=== PATIENT | male | born 1995 | race Caucasian/White ===

== ENCOUNTER 2020-09-05 10:15 | Outpatient (REF) | payer OTHER, SELFPAY | END 2020-09-05 10:16 | disposition home or self-care (01) | LOC: HO.LAB 10:15 | PROVIDERS: PCP Internal Medicine; Visit Provider Internal Medicine | DX: Z20.822 Contact with and (suspected) exposure to COVID-19 (principal) | CPT/HCPCS: 36415; C9803; U0003; U0005 ==

== ENCOUNTER 2021-03-14 18:32 | Emergency (ER) | payer OTHER, SELFPAY ==
--- NOTE | ~2021-03-14 | XR_ITS ---
EXAMINATION: LEFT HAND CLINICAL INFORMATION: Status post surgery pain COMPARISON: None TECHNIQUE: 4 views FINDINGS: No acute finding. No evidence for fracture or dislocation. No soft tissue calcification. No underlying bony erosion or osteopenia. XR/XR hand wrist LT IMPRESSION: No bony finding.
[2021-03-14 18:35] VITALS: BP 139/68; PULSE 74; RESP 16; TEMP 36.9; O2SAT 96; BMI 21.9
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
--- NOTE | 2021-03-14 20:47 | PC.NURSE ---
PT THUMB SPICA PLACED BY PCT MICHELLE CHECKED BY MAGO BARNETT.
== END 2021-03-14 21:06 | disposition home or self-care (01) ==
PROVIDERS: Emergency Provider Internal Medicine; PCP Internal Medicine
DX: S63.642A Sprain of metacarpophalangeal joint of left thumb, initial encounter (principal); M79.642 Pain in left hand; Y29.XXXA Contact with blunt object, undetermined intent, initial encounter; Y93.9 Activity, unspecified; Y92.810 Car as the place of occurrence of the external cause; Z79.899 Other long term (current) drug therapy; Y99.9 Unspecified external cause status
CPT/HCPCS: 29130; 73110; 73130; 99283

== ENCOUNTER 2021-03-18 11:03 | Emergency (ER) | payer OTHER, SELFPAY ==
--- NOTE | ~2021-03-18 | XR_ITS ---
EXAMINATION: XR FINGER, LEFT CLINICAL INFORMATION: Thumb pain, swelling COMPARISON: None TECHNIQUE: 3 views of the left thumb including a PA view of the hand. FINDINGS: The alignment is normal. No fracture or dislocation or acute osseous abnormality is seen. Mild soft tissue swelling. XR/XR finger LT min 2V IMPRESSION: Mild soft tissue swelling. No acute fracture or dislocation is seen.
[2021-03-18 11:09] VITALS: BP 150/79; PULSE 82; RESP 17; TEMP 36.9; O2SAT 99; BMI 21.1
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
[2021-03-18 12:54] LABS: Basophils Percent Auto 0.2 % (0-2); Eosinophils Absolute Auto 0.1 X10*3/uL (0.0-0.4); Eosinophils Percent Auto 0.8 % (0-4); Hematocrit 46.1 % (42-52); Hemoglobin 15.1 g/dl (14.0-18.0); Imm Gran Pct Auto 0.6 % (0.0-0.4); Lymphocytes Absolute Auto 1.1 X10*3/uL (1.2-4.9); Lymphocytes Percent Auto 6.5 % (20-40); MANUAL DIFF FLAG SCAN; Mean Corpuscular HGB Conc 32.8 g/dl (31.0-36.0); Mean Corpuscular Hemoglobin 30.3 pg (27.0-33.0); Mean Corpuscular Volume 92.4 fL (80-98); Mean Platelet Volume 10.1 fL (9.4-12.4); Monocytes Absolute Auto 1.7 X10*3/uL (0.1-1.2); Monocytes Percent Auto 9.9 % (2-11); Neutrophils Absolute Auto 14.2 X10*3/uL (2.0-8.3); Platelet Count 212 X10*3/uL (160-400); Red Blood Count 4.99 X10*6/uL (4.60-5.80); Red Cell Distribution Width 12.9 % (11.0-16.0); SCAN SMEAR FLAG 1; White Blood Count 17.3 X10*3/uL (4.8-10.8)
[2021-03-18 13:12] LABS: COVID-19 Test Negative (Negative)
[2021-03-18 13:16] LABS: SLIDE REVIEW VERIFIED
[2021-03-18] MEDS: cefTRIAXone sodium 1 GM in 0.9 % Sodium Chloride 50 ML IV (13:17)
[2021-03-18] MEDS: HYDROcodone Bit/Acetam 5/325 TABLET 1 TAB PO (13:18)
[2021-03-18 13:19] LABS: Lactic Acid 0.9 mmol/L (0.5-2.0)
[2021-03-18 13:24] LABS: Anion Gap 13 (12-20); Blood Urea Nitrogen 7 mg/dL (9-16); C Reactive Protein 8.48 mg/dL (< or = 0.50); Calcium 10.1 mg/dL (8.4-10.2); Carbon Dioxide 27 mmol/L (22-29); Chloride 102 mmol/L (96-108); Creatinine Clr Calc Pharmacy 119.2; Estimated Glomerular Filt Rate > 60; Glucose Random 105 mg/dL (60-115); Magnesium 2.1 mg/dL (1.6-2.6); Potassium 4.1 mmol/L (3.3-5.1); Sodium 138 mmol/L (135-145)
[2021-03-18 13:34] LABS: Erythrocyte Sedimentation Rate 11 MM/HR (0-15)
[2021-03-18] MEDS: vancomycin HCL 750 MG in 0.9 % Sodium Chloride 250 ML 265 MG IV (13:53)
[2021-03-18 15:25] VITALS: BP 127/76; PULSE 68; RESP 16; TEMP 37.3; O2SAT 100
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
== END 2021-03-18 15:50 | disposition home or self-care (01) ==
PROVIDERS: Physician Assistant; Emergency Provider Emergency Medicine; PCP Internal Medicine
DX: R22.32 Localized swelling, mass and lump, left upper limb (principal); M79.642 Pain in left hand; Z20.822 Contact with and (suspected) exposure to COVID-19; Z79.899 Other long term (current) drug therapy
CPT/HCPCS: 36415; 73140; 80048; 83605; 83735; 85025; 85652; 86140; 87040; 87635; 96360; 96361; 99284; J0696; J3370

== ENCOUNTER 2021-03-19 09:45 | Outpatient (REF) | payer OTHER, SELFPAY | END 2021-03-19 09:46 | disposition home or self-care (01) | LOC: HO.LNP 09:45 | PROVIDERS: Visit Provider Physician Assistant | DX: L02.512 Cutaneous abscess of left hand (principal) | CPT/HCPCS: 10061; 87071; 87077; 87186; 87205; 99202 ==

== ENCOUNTER → 2021-03-22 11:04 | Outpatient (BNVA) | payer OTHER, SELFPAY | PROVIDERS: Visit Provider Physician Assistant | DX: L02.512 Cutaneous abscess of left hand (principal) | CPT/HCPCS: 99212 ==

== ENCOUNTER → 2021-03-28 10:15 | Outpatient (BNVA) | payer OTHER, SELFPAY | PROVIDERS: Visit Provider Physician Assistant | DX: L02.512 Cutaneous abscess of left hand (principal) | CPT/HCPCS: 99212 ==

== ENCOUNTER 2021-03-29 20:38 | Emergency (ER) | payer OTHER, SELFPAY ==
[2021-03-29 20:50] VITALS: BP 122/71; PULSE 89; RESP 16; TEMP 37.1; O2SAT 98; BMI 21.9
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
[2021-03-29] MEDS: Lidocaine HCl 2 % MPF 5 ML VIAL 10 ML SUBCUT (22:45)
[2021-03-29] MEDS: Diphth,Pertus(ACell),Tet Adult 0.5 ML SYRINGE IM (22:45)
[2021-03-29] MEDS: Amoxicillin/Potassium Clav 875 MG TABLET PO (22:45)
== END 2021-03-29 23:40 | disposition home or self-care (01) ==
PROVIDERS: Emergency Provider Student in an Organized Health Care Education/Training Program; PCP Internal Medicine
DX: S01.512A Laceration without foreign body of oral cavity, initial encounter (principal); S02.5XXA Fracture of tooth (traumatic), initial encounter for closed fracture; Y04.2XXA Assault by strike against or bumped into by another person, initial encounter; Y93.9 Activity, unspecified; Y92.9 Unspecified place or not applicable; Y99.9 Unspecified external cause status
CPT/HCPCS: 12011; 90471; 90715; 99283; 99284

== ENCOUNTER → 2021-04-02 12:08 | Outpatient (BNVA) | payer OTHER, SELFPAY | PROVIDERS: Visit Provider Physician Assistant ==

== ENCOUNTER → 2021-04-13 10:56 | Outpatient (BNVA) | payer OTHER, SELFPAY | PROVIDERS: Visit Provider Physician Assistant | DX: L02.512 Cutaneous abscess of left hand (principal) | CPT/HCPCS: 99212 ==

== ENCOUNTER 2021-04-18 17:24 | Emergency (ER) | payer OTHER, SELFPAY ==
[2021-04-18 18:01] VITALS: BP 120/62; PULSE 74; RESP 16; TEMP 36.9; O2SAT 100; BMI 19.5
[2021-04-18] MEDS: Lidocaine HCl 1 % MPF 5 ML VIAL SUBCUT (18:35)
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
== END 2021-04-18 19:12 | disposition home or self-care (01) ==
PROVIDERS: Emergency Provider Internal Medicine; PCP Internal Medicine
DX: S61.412A Laceration without foreign body of left hand, initial encounter (principal); M79.642 Pain in left hand; W26.8XXA Contact with other sharp object(s), not elsewhere classified, initial encounter; Y93.9 Activity, unspecified; Y92.009 Unspecified place in unspecified non-institutional (private) residence as the place of occurrence of the external cause; Y99.9 Unspecified external cause status; Z79.899 Other long term (current) drug therapy
CPT/HCPCS: 12001; 99283; 99284

== ENCOUNTER 2022-01-05 13:50 | Inpatient (IN) | payer OTHER, SELFPAY ==
--- NOTE | ~2022-01-05 | XR_ITS ---
EXAMINATION: XR HAND, RIGHT CLINICAL INFORMATION: Trauma. COMPARISON: None TECHNIQUE: PA, lateral, and oblique views of the right hand. FINDINGS: The bones and soft tissues are normal. No fracture. Alignment is anatomic. Joint spaces are maintained. No erosions or soft tissue calcifications. XR/XR hand RT min 3V IMPRESSION: Normal right hand.
[2022-01-05 14:02] VITALS: BP 105/78; BP 140/90; PULSE 100; PULSE 125; RESP 18; TEMP 36.8; O2SAT 100; BMI 19.7
--- NOTE | 2022-01-05 14:03 | ED.GENADULT ---
HPI - General Adult General Chief complaint: Psychiatric Symptoms Stated complaint: SI Time Seen by Provider: 01/05/22 14:03 Source: patient and EMS Mode of arrival: EMS Limitations: no limitations History of Present Illness HPI narrative: Patient is a 26 year old male presenting to the emergency department today with suicidal ideation and auditory hallucinations. Patient states that he wants to kill himself but he is unsure how. Patient denies any dizziness, lightheadedness, abdominal pain, nausea, vomiting, fever, chills, blurry vision, double vision, loss of vision, chest pain, difficulty breathing, shortness of breath, back pain, night sweats, pain with urination, increased urinary frequency, increased urinary urgency, blood in his urine or stool, syncope or a near syncopal episode, recent trauma or falls, bowel incontinence, bladder incontinence, bowel retention, bladder retention, or any other complaints at this time. Onset (ago): hour(s) Severity: mild Severity scale (1-10): 4 Relieving factors: none Exacerbating factors: none Associated symptoms: denies other symptoms Treatments prior to arrival: none Related Data Previous Rx's Medication Instructions Recorded albuterol sulfate 90 mcg/actuation 1 inh inhalation QID 30 days #8.5 12/07/20 aerosol inhaler (ProAir HFA) grams budesonide-formoterol HFA 80 2 puff inhalation BID 30 days 12/07/20 mcg-4.5 mcg/actuation aerosol #10.2 grams inhaler (Symbicort) prednisone 10 mg tablet 10 mg PO DAILY 6 days #12 tabs 12/07/20 hydrocodone 5 mg-acetaminophen 325 1 tab PO Q6H PRN pain #7 tabs 03/18/21 mg tablet ibuprofen 600 mg tablet 600 mg PO Q8H PRN pain #20 tabs 03/18/21 amoxicillin 875 mg-potassium 1 tab PO Q12H 10 days #20 tabs 03/29/21 clavulanate 125 mg tablet (Augmentin) sulfamethoxazole 800 1 tab PO BID 10 days #20 tabs 04/13/21 mg-trimethoprim 160 mg tablet (Bactrim DS) Allergies Allergy/AdvReac Type Severity Reaction Status Date / Time No Known Allergies Allergy Verified 04/18/21 18:04 Review of Systems Constitutional: Constitutional: Reports no additional constitutional complaints, Denies chills, Denies fever(s) and Denies night sweats Eyes: Eyes: Reports no additional eye complaints, Denies blurry vision, Denies change in vision, Denies diplopia, Denies eye discharge, Denies loss of vision and Denies eye pain ENT: Denies dizziness Cardiovascular: Cardiovascular: Reports no additional cardiovascular complaints, Denies chest pain, Denies lightheadedness, Denies Loss of Consciousness and Denies dyspnea Respiratory: Respiratory: Reports no additional respiratory complaints and Denies dyspnea Gastrointestinal: Gastrointestinal: Reports no additional gastrointestinal complaints, Denies abdominal pain, Denies melena, Denies hematochezia, Denies change in bowel habits and Denies change in stool character Genitourinary: Genitourinary: Reports no additional male genitourinary complaints, Denies hematuria, Denies oliguria, Denies difficulty urinating, Denies dysuria, Denies urinary frequency, Denies urinary hesitancy, Denies urinary incontinence and Denies urinary urgency Musculoskeletal: Musculoskeletal: Reports no additional musculoskeletal complaints, Denies numbness and Denies tingling Neurologic: Denies dizziness, Denies loss of vision, Denies numbness and Denies tingling Psychiatric: Psychiatric: Reports no additional psychiatric complaints and Reports suicidal ideation Endocrine: Endocrine: Reports no additional endocrine complaints Hematologic/Lymphatic: Hematologic/Lymphatic: Reports no additional hematologic/lymphatic complaints Allergic/Immunologic: Allergic/Immunologic: Reports no additional allergic/immunologic complaints [facility] Past Medical History Attestation statement: The following information was validated with the patient. 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 Physical Exam ED Vital Signs: Vital Signs - 24 hr 01/05/22 14:02 01/05/22 16:20 Temperature 98.2 F 98.8 F Pulse Rate 100 67 Respiratory Rate 18 20 Blood Pressure 105/78 98/63 Pulse Oximetry 100 98 Oxygen Delivery Method Room Air Room Air BMI result Body Mass Index 19.7 Const General: cooperative, no acute distress, alert and awake Nutritional Appearance: well nourished Orientation/consciousness: patient oriented x3 Limitations: no limitations HENMT Head: Yes normal to inspection and Yes atraumatic Ears: hearing grossly normal bilaterally and external ears normal General nose exam: Normal external nose present, no nasal discharge noted and no epistaxis Face and sinus: Yes normal facial exam, No abrasion and No laceration Mouth: Normal oral and palatal mucosa present, no drooling and no muffled voice Eyes General: appearance normal, both eyes and all related structures Periorbital: periorbital findings normal Eyelids: Yes eyelids normal Conjunctivae: conjunctivae normal Pupils: Equal, round and reactive pupils present EOM: EOMs intact bilaterally Neck Neck: Yes normal visual inspection, Yes full ROM and Yes no lymphadenopathy Chest Chest palpation & inspection: normal inspection of the chest Resp Effort & Inspection: normal respiratory effort and able to speak in complete sentences Auscultation: clear to auscultation bilaterally Cardio Rate: regular rate Rhythm: regular rhythm GI Inspection: Yes normal to inspection Neuro General: patient oriented x3 and moves all extremities Cranial nerves: Yes Equal, round and reactive pupils present Cognition (Neuro): normal cognition Motor exam (neuro): 5/5 motor strength present throughout Sensory Exam: Normal double simultaneous stimulation for sensation Coordination: [id number] test normal Extrem General: Yes normal to inspection, Yes full ROM and Yes capillary refill normal Psych Appearance: grossly normal Mental Status: mental status grossly normal Affect: normal affect Attitude: cooperative Thought process: Normal thought process present Thought content: Suicidality present Insight: Good insight present (Psych) Medical Decision Making [facility] Narrative Medical decision making narrative: Patient is a 26 year old male presenting to the emergency department today with suicidal ideation. Patient's physical exam was unremarkable. Patient's blood work showed an elevated white blood cell count however, this is chronic for the patient. I explained my physical exam findings as well as all test results to the patient. I answered all questions asked by the patient. Patient was evaluated by [facility] and they recommended inpatient treatment. Patient verbalized agreement with inpatient treatment. Differential Diagnosis Differential Diagnosis: suicidal ideation, depression Medical Records Medical records reviewed: Yes I reviewed the patient's medical records. Lab Data Lab results reviewed: Yes I reviewed the patient's lab results. Result diagrams: 01/05/22 15:49 01/05/22 15:49 Labs: Lab Results 01/05/22 01/05/22 01/05/22 Range/Units 14:49 15:49 15:49 WBC 12.9 H (4.8-10.8) X10*3/uL RBC 5.46 (4.60-5.80) X10*6/uL Hgb 16.1 (14.0-18.0) g/dl Hct 48.2 (42.0-52.0) % MCV 88.3 (80.0-98.0) fL MCH 29.5 (27.0-33.0) pg MCHC 33.4 (31.0-36.0) g/dl RDW 12.3 (11.0-16.0) % Plt Count 230 (160-400) X10*3/uL MPV 9.7 (9.4-12.4) fL Immature Gran % (Auto) 0.4 (0.0-0.4) % Neut % (Auto) 81.6 H (45-73) % Lymph % (Auto) 9.8 L (20-40) % [place] % (Auto) 7.0 (2-11) % Eos % (Auto) 0.9 (0-4) % Baso % (Auto) 0.3 (0-2) % Lymph # (Auto) 1.3 (1.2-4.9) X10*3/uL [place] # (Auto) 0.9 (0.1-1.2) X10*3/uL Eos # (Auto) 0.1 (0.0-0.4) X10*3/uL Baso # (Auto) 0.0 (0.0-0.2) X10*3/uL Abs Immat Gran (auto) 0.05 H (0.00-0.03) X10*3/uL Absolute Neuts (auto) 10.6 H (2.0-8.3) x10*3/uL Absolute Nucleated RBC 0.000 (0.0-0.012) X10*3/uL Nucleated RBC % (auto) 0.0 (0.0-0.2) /100WBC Sodium 138 (135-145) mmol/L Potassium 4.8 (3.3-5.1) mmol/L Chloride 104 (96-108) mmol/L Carbon Dioxide 25 (22-29) mmol/L Anion Gap 14 (12-20) BUN 16 (9-16) mg/dL Creatinine 1.00 (0.5-1.4) mg/dL Estim Creat Clear Calc 82.5 Estimated GFR > 60 Random Glucose 88 (60-115) mg/dL Calcium 10.0 (8.4-10.2) mg/dL Total Bilirubin 1.1 H (0.0-1.0) mg/dL AST 12 (5-37) U/L ALT 11 (0-40) U/L Alkaline Phosphatase 65 (39-117) U/L Total Protein 7.9 (6.5-8.0) g/dL Albumin 5.1 H (3.5-5.0) g/dL Ethyl Alcohol mg/dL COVID-19 ([facility]) Negative (Negative) COVID-19 Clin Com See Note 01/05/22 Range/Units 15:49 WBC (4.8-10.8) X10*3/uL RBC (4.60-5.80) X10*6/uL Hgb (14.0-18.0) g/dl Hct (42.0-52.0) % MCV (80.0-98.0) fL MCH (27.0-33.0) pg MCHC (31.0-36.0) g/dl RDW (11.0-16.0) % Plt Count (160-400) X10*3/uL MPV (9.4-12.4) fL Immature Gran % (Auto) (0.0-0.4) % Neut % (Auto) (45-73) % Lymph % (Auto) (20-40) % [place] % (Auto) (2-11) % Eos % (Auto) (0-4) % Baso % (Auto) (0-2) % Lymph # (Auto) (1.2-4.9) X10*3/uL [place] # (Auto) (0.1-1.2) X10*3/uL Eos # (Auto) (0.0-0.4) X10*3/uL Baso # (Auto) (0.0-0.2) X10*3/uL Abs Immat Gran (auto) (0.00-0.03) X10*3/uL Absolute Neuts (auto) (2.0-8.3) x10*3/uL Absolute Nucleated RBC (0.0-0.012) X10*3/uL Nucleated RBC % (auto) (0.0-0.2) /100WBC Sodium (135-145) mmol/L Potassium (3.3-5.1) mmol/L Chloride (96-108) mmol/L Carbon Dioxide (22-29) mmol/L Anion Gap (12-20) BUN (9-16) mg/dL Creatinine (0.5-1.4) mg/dL Estim Creat Clear Calc Estimated GFR Random Glucose (60-115) mg/dL Calcium (8.4-10.2) mg/dL Total Bilirubin (0.0-1.0) mg/dL AST (5-37) U/L ALT (0-40) U/L Alkaline Phosphatase (39-117) U/L Total Protein (6.5-8.0) g/dL Albumin (3.5-5.0) g/dL Ethyl Alcohol < 10 mg/dL COVID-19 ([facility]) (Negative) COVID-19 Clin Com Discharge Plan Discharge Clinical Impression: Feeling suicidal Patient Disposition: Still a Patient Prescriptions: No Action ibuprofen 600 mg tablet 600 mg PO Q8H PRN (Reason: pain) Qty: 20 0RF hydrocodone-acetaminophen 5-325 mg tablet 1 tab PO Q6H PRN (Reason: pain) Qty: 7 0RF amoxicillin-pot clavulanate [Augmentin] 875-125 mg tablet 1 tab PO Q12H 10 Days Qty: 20 0RF prednisone 10 mg tablet 10 mg PO DAILY 6 Days Qty: 12 0RF Rx Instructions: take 3 tabs x 2 days, take 2tabs x 2 days, take 1 tab x2 days albuterol sulfate [ProAir HFA] 90 mcg/actuation HFA aerosol inhaler 1 inh inhalation QID 30 Days Qty: 8.5 1RF budesonide-formoterol [Symbicort] 80-4.5 mcg/actuation HFA aerosol inhaler 2 puff inhalation BID 30 Days Qty: 10.2 0RF sulfamethoxazole-trimethoprim [Bactrim DS] 800-160 mg tablet 1 tab PO BID 10 Days Qty: 20 0RF Print Language: Yemeni
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
[2022-01-05 15:19] LABS: COVID-19 Test Negative (Negative); IDNOW Serial# 16C4AD1C
[2022-01-05 15:57] LABS: MANUAL DIFF FLAG NO
[2022-01-05 15:58] LABS: Basophils Percent Auto 0.3 % (0-2); Eosinophils Absolute Auto 0.1 X10*3/uL (0.0-0.4); Eosinophils Percent Auto 0.9 % (0-4); Hematocrit 48.2 % (42.0-52.0); Hemoglobin 16.1 g/dl (14.0-18.0); Imm Gran Abs Auto 0.05 X10*3/uL (0.00-0.03); Imm Gran Pct Auto 0.4 % (0.0-0.4); Lymphocytes Absolute Auto 1.3 X10*3/uL (1.2-4.9); Lymphocytes Percent Auto 9.8 % (20-40); Mean Corpuscular HGB Conc 33.4 g/dl (31.0-36.0); Mean Corpuscular Hemoglobin 29.5 pg (27.0-33.0); Mean Corpuscular Volume 88.3 fL (80.0-98.0); Mean Platelet Volume 9.7 fL (9.4-12.4); Monocytes Absolute Auto 0.9 X10*3/uL (0.1-1.2); Neutrophils Absolute Auto 10.6 x10*3/uL (2.0-8.3); Neutrophils Percent Auto 81.6 % (45-73); Platelet Count 230 X10*3/uL (160-400); Red Blood Count 5.46 X10*6/uL (4.60-5.80); Red Cell Distribution Width 12.3 % (11.0-16.0); White Blood Count 12.9 X10*3/uL (4.8-10.8)
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
[2022-01-05 16:14] LABS: Ethanol < 10 mg/dL
[2022-01-05 16:18] LABS: Alanine Aminotransferase 11 U/L (0-40); Albumin Level 5.1 g/dL (3.5-5.0); Alkaline Phosphatase 65 U/L (39-117); Anion Gap 14 (12-20); Aspartate Amino Transferase 12 U/L (5-37); Bilirubin Total 1.1 mg/dL (0.0-1.0); Blood Urea Nitrogen 16 mg/dL (9-16); Carbon Dioxide 25 mmol/L (22-29); Chloride 104 mmol/L (96-108); Creatinine Clr Calc Pharmacy 82.5; Estimated Glomerular Filt Rate > 60; Glucose Random 88 mg/dL (60-115); Potassium 4.8 mmol/L (3.3-5.1); Sodium 138 mmol/L (135-145); Total Protein 7.9 g/dL (6.5-8.0)
[2022-01-05 16:20] VITALS: BP 98/63; PULSE 67; RESP 20; TEMP 37.1; O2SAT 98
[2022-01-05] MEDS: Acetaminophen 325 MG TABLET 650 MG PO (16:52)
[2022-01-05 19:54] VITALS: BP 117/64; PULSE 82; RESP 16; TEMP 36.9; O2SAT 98
[2022-01-05 20:50] LABS: Amphetamine Screen Urine Not Detected (Not Detect); Barbiturates, Urine Not Detected (Not Detect); Benzodiazepines Screen Urine Not Detected (Not Detect); Cannabinoid Screen Urine POSITIVE (Not Detect); Cocaine Screen Urine Not Detected (Not Detect); Fentanyl, urine Not Detected (Not Detect); Opiate Screen Urine Not Detected (Not Detect); Phencyclidine Screen Urine Not Detected (Not Detect)
--- NOTE | 2022-01-05 21:06 | MHC.CARE ---
CARE team responded to POD concerns that pt was escalating and demanding to leave the facility. Pt was observed loudly demanding to be given his belongings and to discharge immediately. When asked what has triggered this change he loudly and with fixed stare (still shirtless and seated on bed) began to state you all are treating me like an animal, nobody is listening to me, nobody is helping me and I'm gonna leave ! Efforts of supportive discussion by CARE was dismissed by pt and he continued to escalate. He became louder, and was hitting the bed with a clenched fist. He said you all cant keep me here against my will...I got myself in here and I can get myself out of here . Pod staff made numerous efforts to support pt without success. CARE asked ED provider for medication help or consider change in disposition. SACK MAKER offered to provide medication and continue the section 12a for further observation with follow up in am. Security called for standby when explaining plan to pt and he continue to demand to leave and continued to state how I don't have a doctor no doctor has seen me here ! It was after time and supportive contact from POD pt calmed some and was agreeable to stay overnight. Pt would not safety plan or even discuss his reason for visit with CARE, and dismissed CARE. Pt overheard loudly telling staff that nobody has been listening or helping me despite the crisis evaluation that occurred within hours of this outburst and agreed upon plan as pt was asking outright for admission due to reported SI and intrusive thoughts and images (pt reported AVH). Pt to remain in ED and have follow up in am if dispo to be changed with ED provider at that time.
[2022-01-05 23:20] VITALS: BP 122/79; PULSE 61; RESP 16; TEMP 36.4; O2SAT 100
--- NOTE | 2022-01-06 06:56 | PC.NURSE ---
Patient slept through the night, no distress observed/reported, patient had one episode of behavioral outburst but deescalated without any medical intervention, patient was assessed by care team, pending disposition at this time, patient is currently not on any medication, refused Ativan, will continue to monitor.
--- NOTE | 2022-01-06 11:08 | PC.NURSE ---
PT OUT OF ROOM TO USE RESTROOM. DENIES SI/HI, DENIES PAIN. QUESTIONS WHY IS HE STILL IN HERE. LUCILLE TOUCHED BASE WITH HIM. NO ISSUES OBSERVED/REPORTED.
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
[2022-01-06 13:46] VITALS: BP 108/61; PULSE 69; RESP 14; TEMP 36.7; O2SAT 100
--- NOTE | 2022-01-06 16:49 | PC.NURSE ---
PT ACCEPTED TO [facility], NURSE TO NURSE GIVEN TO KEANU ROBERT.
[2022-01-06 17:30] LABS: COVID-19 Test Negative (Negative); IDNOW Serial# 16C4AD1C
[2022-01-06 18:00] VITALS: BP 132/79; PULSE 74; RESP 16; TEMP 36.7; O2SAT 100
[2022-01-06 19:23] VITALS: BMI 21.2
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
[2022-01-07 08:30] VITALS: BP 141/68; PULSE 73; RESP 18; TEMP 36.7; O2SAT 100
--- NOTE | 2022-01-07 10:49 | PC.NURSE ---
Patient reported that he is a smoker. Reported smoking a pack a day for 14 years. Patient requesting nicotine patch and gum as replacement therapy. Courtney Mendoza Nurse Practitioner notified.
--- NOTE | 2022-01-07 11:41 | MHC.CLN ---
NUTRITION CONSULT FOR RECENT WEIGHT LOSS. VISITED WITH PATIENT ON UNIT. REPORTS THAT WEIGHT FLUCTUATES AND THAT EATING WELL HERE. BMI=21.2. ADVISED THAT CAN SELECT FOODS OF CHOICE AND REQUEST SNACKS. ADDING ENSURE BID PER CONVERSATION. SUPPLEMENT PROVIDES ADDITIONAL 700 KCAL, 40 G PROTEIN.
[2022-01-07 13:24] LABS: Free T4 (Free Thyroxine) 0.99 ng/dL (0.71-1.85); Thyroid Stimulating Hormone 1.12 uIU/mL (0.32-4.0)
[2022-01-07 13:33] LABS: Folate 10.9 ng/mL (> or = 4.0); Vitamin B12 389 pg/mL (200-900)
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
[2022-01-07 18:43] VITALS: BP 142/75; PULSE 72; RESP 16; TEMP 36.8; O2SAT 100
[2022-01-07] MEDS: Melatonin 3 MG TABLET 6 MG PO (21:40)
[2022-01-08 08:15] VITALS: BP 114/75; PULSE 78; RESP 18; TEMP 36.6; O2SAT 100
[2022-01-08] MEDS: Nicotine Polacrilex 2 MG GUM BUCCAL (08:54)
[2022-01-08] MEDS: FLUoxetine HCl 20 MG CAPSULE PO (09:24)
[2022-01-08] MEDS: Nicotine 21 MG PATCH.TD24 TRANSDERMA (09:25)
[2022-01-08] MEDS: hydrOXYzine HCL 25 MG TABLET PO ×2 (11:03→21:52)
[2022-01-08 12:09] VITALS: BP 152/76; PULSE 96; RESP 18; O2SAT 99
[2022-01-08] MEDS: cloNIDine HCL 0.1 MG TABLET PO ×3 (12:12→21:53)
[2022-01-08 14:30] VITALS: BP 145/80; PULSE 80; RESP 18; O2SAT 99
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
[2022-01-08 21:45] VITALS: BP 115/63; PULSE 81; RESP 18; TEMP 36.7; O2SAT 99
[2022-01-08] MEDS: Triamcinolone Acet 0.1 % Cream 15 GM TUBE 1 APPL TOPICAL (21:51)
[2022-01-08] MEDS: Melatonin 3 MG TABLET 6 MG PO (21:53)
[2022-01-08] MEDS: traZODone HCL 50 MG TABLET PO (21:53)
[2022-01-09 06:00] VITALS: BP 130/77; PULSE 62; RESP 18; TEMP 36.6; O2SAT 100
[2022-01-09] MEDS: hydrOXYzine HCL 25 MG TABLET PO ×2 (08:25→21:32)
[2022-01-09] MEDS: cloNIDine HCL 0.1 MG TABLET PO ×2 (08:25→21:32)
[2022-01-09] MEDS: FLUoxetine HCl 20 MG CAPSULE PO (08:26)
[2022-01-09] MEDS: Nicotine 21 MG PATCH.TD24 TRANSDERMA ×2 (13:06→13:08)
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
--- NOTE | 2022-01-09 15:16 | PC.NURSE ---
Patient approached for 3pm Clonidine, stated I want to be left the fuck alone .
[2022-01-09] MEDS: Nicotine Polacrilex 2 MG GUM BUCCAL (21:32)
[2022-01-09] MEDS: Melatonin 3 MG TABLET 6 MG PO (21:32)
[2022-01-09] MEDS: traZODone HCL 50 MG TABLET PO (21:32)
[2022-01-09] MEDS: Triamcinolone Acet 0.1 % Cream 15 GM TUBE 1 APPL TOPICAL (21:38)
[2022-01-09 21:39] VITALS: BP 127/64; PULSE 67; TEMP 36.6; O2SAT 100
[2022-01-09] MEDS: traZODone HCL 100 MG TABLET PO (22:42)
[2022-01-10 07:00] VITALS: BMI 22.5
[2022-01-10 08:23] VITALS: BP 125/71; PULSE 74; RESP 16; TEMP 36.8; O2SAT 100
[2022-01-10] MEDS: FLUoxetine HCl 20 MG CAPSULE PO (08:24)
[2022-01-10] MEDS: cloNIDine HCL 0.1 MG TABLET PO ×3 (08:25→20:57)
[2022-01-10] MEDS: Nicotine 21 MG PATCH.TD24 TRANSDERMA (08:26)
[2022-01-10] MEDS: OLANZapine 2.5 MG TABLET PO ×2 (11:43→14:07)
--- NOTE | 2022-01-10 13:41 | P.PNPSI_ITS ---
Subjective Subjective Date of Service: 01/10/22 Reason For Visit: SI, depression Interim History: pt more agitated/activated today than during interviews the past couple of days. discuss his letter of last night, which he supports with his narrative today. reports seeing images for up to 5 seconds at a time of himself or a demon or alien hurting others, ego dystonic. he is tired of going through life with such content in his head. he states he is emotionally a child and needs a mother and every time he goes to his mother she is down on him. he asks if he should stop going to her. supports his engaging in a therapy relationship as a surrogate parental figure. due to the level of distress pt experiences from these intrusive images, MD suggests zyprexa 2.5 QAM and 5 mg QHS to see if it may be helpful. pt agrees to trial. per staff, retracted his 3-day notice. l abile evening, was calm and stable during day. eating meals, denying SX daytime. then labile and irritable eves, perhaps after mtg with SW in which his perhaps overly ambitious ideas about options available to him were frustrated. later in ethan calmed again, became help-seeking, wrote note detailing some quasi- psychotic Sx he has been experiencing and the level of his emotional distress. Mental Status Exam Mental Status Exam Narrative: A&O. Thin body habitus, casual attire, tattoos. Good eye contact, attentive. No Tics or Tremors. PMA of leg bouncing. anxious, cooperative, engaged, appearing mildly agitated. Non-pressured speech, spontaneous with regular rate and rhythm, normal volume and prosody. No prolonged speech latency or dysarthria. affect is hyper-intense, mod-labile. no SI/HI/AVH expressed. Thoughts are coherent, organized. No known cognitive or memory impairment. Insight/ Judgment fair and adequate. Diagnostics Vital Signs (24Hr): Vital Signs - 24 hr 01/09/22 21:39 01/10/22 08:23 Temperature 97.8 F 98.3 F Pulse Rate 67 74 Respiratory Rate 16 Blood Pressure 127/64 125/71 Pulse Oximetry 100 100 Oxygen Delivery Method Room Air Room Air BMI result Body Mass Index 22.5 Labs Results: 01/05/22 15:49 01/05/22 15:49 Medications Medications Current Medications Acetaminophen (Acetaminophen 325 Mg Tablet) 650 mg PO Q6H PRN PRN Reason: Headache/Pain Mild Scale (1-3) Al Hydroxide/Mg Hydroxide (Magnesium Hydrox/Alum Hydrox 30 Ml Oral.Susp) 30 ml PO Q6H PRN PRN Reason: Heartburn/Nausea Albuterol Sulfate (Albuterol Sulfate 90 Mcg 8 Gm Inhaler) 2 puff INHALE Q4H PRN PRN Reason: asthma Clonidine HCl (Clonidine Hcl 0.1 Mg Tablet) 0.1 mg PO Q4H PRN; Protocol PRN Reason: anxiety, sleep, hyperarousal Clonidine HCl (Clonidine Hcl 0.1 Mg Tablet) 0.1 mg PO TID [facility]; Protocol Last Admin: 01/10/22 08:25 Dose: 0.1 mg Fluoxetine HCl (Fluoxetine Hcl 20 Mg Capsule) 20 mg PO DAILY [facility] Last Admin: 01/10/22 08:24 Dose: 20 mg Hydroxyzine HCl (Hydroxyzine Hcl 25 Mg Tablet) 25 mg PO Q6H PRN PRN Reason: Anxiety Last Admin: 01/09/22 21:32 Dose: 25 mg Magnesium Hydroxide (Milk Of Magnesia 30 Ml Oral.Susp) 30 ml PO DAILY PRN PRN Reason: Constipation Melatonin (Melatonin 3 Mg Tablet) 6 mg PO BEDTIME PRN PRN Reason: Insomnia Last Admin: 01/09/22 21:32 Dose: 6 mg Nicotine (Nicotine 21 Mg Patch.Td24) 21 mg TRANSDERMA DAILY [facility] Last Admin: 01/10/22 08:26 Dose: 21 mg Nicotine Polacrilex (Nicotine Polacrilex 2 Mg Gum) 2 mg BUCCAL Q2H PRN PRN Reason: nicotine withdrawal Last Admin: 01/09/22 21:32 Dose: 2 mg Olanzapine (Olanzapine 2.5 Mg Tablet) 2.5 mg PO DAILY [facility] Last Admin: 01/10/22 11:43 Dose: 2.5 mg Olanzapine (Olanzapine 5 Mg Tablet) 5 mg PO BEDTIME [facility] Trazodone HCl (Trazodone Hcl 50 Mg Tablet) 50 mg PO BEDTIME PRN PRN Reason: Insomnia Last Admin: 01/09/22 21:32 Dose: 50 mg Trazodone HCl (Trazodone Hcl 100 Mg Tablet) 100 mg PO BEDTIME [facility] Last Admin: 01/09/22 22:42 Dose: 100 mg Triamcinolone Acetonide (Triamcinolone Acet 0.1 % Cream 15 Gm Tube) 1 appl TOPICAL BID [facility]; Protocol Last Admin: 01/10/22 08:25 Dose: Not Given Allergies Allergies Allergy/AdvReac Type Severity Reaction Status Date / Time No Known Allergies Allergy Verified 04/18/21 18:04 Assessment & Plan Assessment & Plan (1) Post traumatic stress disorder (PTSD): Status: Acute Code(s): F43.10 - Post-traumatic stress disorder, unspecified Plan Gilberto is a 26 y.o. male who carries a dx of PTSD. He presented to [facility] [place] [facility] ED due to SI with plan to cut his neck and AH seeing visions telling him to hurt himself. 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 Denies hx of IPLOC. Hx of OP therapy and brief med management. Hx of SA by overdosing on medication in 2018. Has significant trauma hx in childhood and disrupted attachements. Plan: 01/07: Will start clonidine 0.1 mg Q4H PRN for hyperarousal, anxiety, and poor sleep. Will start prozac 20 mg QAM for sx of PTSD, anxiety, depression. 01/08: continue prozac 20 mg daily. start clonidine 0.1 mg TID for anxiety. start triamcinolone for atopic dermatitis. 01/09: continue current regimen. itch resolved with steroid cream. some improvement in anxiety. 3-day submitted, revoked. 01/10: start olanzapine 5 BID for quasi-psychotic Sx. otherwise continue current mgmt. I spent ___25___ minutes with the patient and/or on the patient floor today, greater than?50% of which was spent counseling/coordinating care. Reason for contiued inpatient stay Substantial Risk for: harm to self, inability to function and rapid decompensation
[2022-01-10 13:55] VITALS: BP 131/70; PULSE 80
[2022-01-10 18:00] VITALS: BP 102/59; PULSE 76; RESP 16; TEMP 36.3; O2SAT 100
[2022-01-10] MEDS: OLANZapine 5 MG TABLET PO (20:57)
[2022-01-10] MEDS: traZODone HCL 100 MG TABLET PO (20:57)
[2022-01-10] MEDS: Melatonin 3 MG TABLET 6 MG PO (21:02)
[2022-01-10] MEDS: traZODone HCL 50 MG TABLET PO (21:52)
[2022-01-11] MEDS: Nicotine 21 MG PATCH.TD24 TRANSDERMA (09:27)
[2022-01-11] MEDS: OLANZapine 5 MG TABLET PO ×3 (09:28→22:09)
[2022-01-11] MEDS: FLUoxetine HCl 20 MG CAPSULE PO (09:28)
[2022-01-11] MEDS: cloNIDine HCL 0.1 MG TABLET PO ×3 (09:28→22:09)
[2022-01-11 09:30] VITALS: BP 130/63; PULSE 82; RESP 16; TEMP 36.6; O2SAT 100
--- NOTE | 2022-01-11 14:11 | HO.PSYCHPN ---
Subjective Subjective Date of Service: 01/11/22 Reason For Visit: SI, depression Interim History: pt found in his room. initially irritable, phone in hand, says, i don't want to talk to anybody right now. staff later approach MD to inform him that pt has said he is ready to meet at any time. MD finds pt again in his room, this time pt receptive to interview. after pleasantries, pt broaches that he was informed he is slated for discharge friday. pt states he does not think he is ready and is very concerned about that plan. some improvement with new med. states his anger remains quick. fewer negative thoughts but still having illusions of shadow people. agreeable to have a zyprexa 5 PRN added to his regimen. per staff, c/o shadows of demons telling him to smash his head. pleasant, polite eves. retracted 3-day notice. Mental Status Exam Mental Status Exam Narrative: A&O. Thin body habitus, casual attire, tattoos. Good eye contact, attentive. No Tics or Tremors. PMA of leg bouncing. anxious, cooperative, engaged, appearing mildly agitated. Non-pressured speech, spontaneous with regular rate and rhythm, normal volume and prosody. No prolonged speech latency or dysarthria. affect is hyper-intense, min-labile. denies SI. no HI/AVH expressed. + illusions. Thoughts are coherent, organized. No known cognitive or memory impairment. Insight/ Judgment fair and adequate. Diagnostics Vital Signs (24Hr): Vital Signs - 24 hr 01/10/22 18:00 01/11/22 09:30 Temperature 97.3 F 97.9 F Pulse Rate 76 82 Respiratory Rate 16 16 Blood Pressure 102/59 L 130/63 Pulse Oximetry 100 100 Oxygen Delivery Method Room Air Room Air BMI result Body Mass Index 22.5 Labs Results: 01/05/22 15:49 01/05/22 15:49 Medications Medications Current Medications Acetaminophen (Acetaminophen 325 Mg Tablet) 650 mg PO Q6H PRN PRN Reason: Headache/Pain Mild Scale (1-3) Al Hydroxide/Mg Hydroxide (Magnesium Hydrox/Alum Hydrox 30 Ml Oral.Susp) 30 ml PO Q6H PRN PRN Reason: Heartburn/Nausea Albuterol Sulfate (Albuterol Sulfate 90 Mcg 8 Gm Inhaler) 2 puff INHALE Q4H PRN PRN Reason: asthma Clonidine HCl (Clonidine Hcl 0.1 Mg Tablet) 0.1 mg PO Q4H PRN; Protocol PRN Reason: anxiety, sleep, hyperarousal Clonidine HCl (Clonidine Hcl 0.1 Mg Tablet) 0.1 mg PO TID [facility]; Protocol Last Admin: 01/11/22 09:28 Dose: 0.1 mg Fluoxetine HCl (Fluoxetine Hcl 20 Mg Capsule) 20 mg PO DAILY [facility] Last Admin: 01/11/22 09:28 Dose: 20 mg Hydroxyzine HCl (Hydroxyzine Hcl 25 Mg Tablet) 25 mg PO Q6H PRN PRN Reason: Anxiety Last Admin: 01/09/22 21:32 Dose: 25 mg Magnesium Hydroxide (Milk Of Magnesia 30 Ml Oral.Susp) 30 ml PO DAILY PRN PRN Reason: Constipation Melatonin (Melatonin 3 Mg Tablet) 6 mg PO BEDTIME PRN PRN Reason: Insomnia Last Admin: 01/10/22 21:02 Dose: 6 mg Nicotine (Nicotine 21 Mg Patch.Td24) 21 mg TRANSDERMA DAILY [facility] Last Admin: 01/11/22 09:27 Dose: 21 mg Nicotine Polacrilex (Nicotine Polacrilex 2 Mg Gum) 2 mg BUCCAL Q2H PRN PRN Reason: nicotine withdrawal Last Admin: 01/09/22 21:32 Dose: 2 mg Olanzapine (Olanzapine 5 Mg Tablet) 5 mg PO BEDTIME [facility] Last Admin: 01/10/22 20:57 Dose: 5 mg Olanzapine (Olanzapine 5 Mg Tablet) 5 mg PO DAILY [facility] Last Admin: 01/11/22 09:28 Dose: 5 mg Olanzapine (Olanzapine 5 Mg Tablet) 5 mg PO Q4H PRN PRN Reason: agitation Trazodone HCl (Trazodone Hcl 50 Mg Tablet) 50 mg PO BEDTIME PRN PRN Reason: Insomnia Last Admin: 01/10/22 21:52 Dose: 50 mg Trazodone HCl (Trazodone Hcl 100 Mg Tablet) 100 mg PO BEDTIME [facility] Last Admin: 01/10/22 20:57 Dose: 100 mg Triamcinolone Acetonide (Triamcinolone Acet 0.1 % Cream 15 Gm Tube) 1 appl TOPICAL BID [facility]; Protocol Last Admin: 01/11/22 09:30 Dose: Not Given Allergies Allergies Allergy/AdvReac Type Severity Reaction Status Date / Time No Known Allergies Allergy Verified 04/18/21 18:04 Assessment & Plan Assessment & Plan (1) Post traumatic stress disorder (PTSD): Status: Acute Code(s): F43.10 - Post-traumatic stress disorder, unspecified Plan Gilberto is a 26 y.o. male who carries a dx of PTSD. He presented to [facility] ED due to SI with plan to cut his neck and AH seeing visions telling him to hurt himself. 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 Denies hx of IPLOC. Hx of OP therapy and brief med management. Hx of SA by overdosing on medication in 2018. Has significant trauma hx in childhood and disrupted attachements. Plan: 01/07: Will start clonidine 0.1 mg Q4H PRN for hyperarousal, anxiety, and poor sleep. Will start prozac 20 mg QAM for sx of PTSD, anxiety, depression. 01/08: continue prozac 20 mg daily. start clonidine 0.1 mg TID for anxiety. start triamcinolone for atopic dermatitis. 01/09: continue current regimen. itch resolved with steroid cream. some improvement in anxiety. 3-day submitted, revoked. 01/10: start olanzapine 5 BID for quasi-psychotic Sx. otherwise continue current mgmt. 01/11: zyprexa 5 mg PRN added to regimen. pt reports improvement in perseverative thinking with zyprexa. illusions continue. I spent __25____ minutes with the patient and/or on the patient floor today, greater than?50% of which was spent counseling/coordinating care. Reason for contiued inpatient stay Substantial Risk for: harm to self, harm to others, inability to function and rapid decompensation
[2022-01-11 21:58] VITALS: BP 118/75; PULSE 76; RESP 16; TEMP 36.6; O2SAT 100
[2022-01-11] MEDS: traZODone HCL 100 MG TABLET PO (22:09)
[2022-01-11] MEDS: Triamcinolone Acet 0.1 % Cream 15 GM TUBE 1 APPL TOPICAL (22:10)
[2022-01-11] MEDS: Melatonin 3 MG TABLET 6 MG PO (22:19)
[2022-01-12 09:00] VITALS: BP 116/70; PULSE 62; RESP 20; TEMP 36.8; O2SAT 100
[2022-01-12] MEDS: FLUoxetine HCl 20 MG CAPSULE PO (09:11)
[2022-01-12] MEDS: OLANZapine 5 MG TABLET PO ×3 (09:11→22:18)
[2022-01-12] MEDS: cloNIDine HCL 0.1 MG TABLET PO ×3 (09:11→22:18)
[2022-01-12] MEDS: Nicotine 21 MG PATCH.TD24 TRANSDERMA (09:12)
--- NOTE | 2022-01-12 10:14 | P.PNPSI_ITS ---
Subjective Subjective Date of Service: 01/12/22 Reason For Visit: SI, depression Subjective Notes: Conditional Voluntary Interim History: pt irritable, anxious; reports seeing shadows. reorts he slept well last night. mood is still variable and can be irritable quickly. Denies thoughts of self or other harm Medication Compliance: Yes Side effects from medications: No Review of Systems Acute medical concerns: No bilirubin 1.1 pt asymptomatic and bilirubin up to 1.2 can be normal for some people.- monitor for clinical signs or symptoms. No pain, abdominal discomfort, or fever Medical Review of Systems: unchanged Review of Systems Review of Systems CVS: No c/o chest pain, palpitations, no SOB EDGE FINISHER: No c/o dizziness, headache GI: No c/o Nausea, Vomiting, diarrhea, constipation or heartburn Constitutional: Reports no additional constitutional complaints, Denies chills, Denies fever(s) and Denies night sweats Eyes: Reports no additional eye complaints, Denies blurry vision, Denies change in vision, Denies diplopia, Denies eye discharge, Denies loss of vision and Denies eye pain Denies dizziness Cardiovascular: Reports no additional cardiovascular complaints, Denies chest pain, Denies lightheadedness, Denies Loss of Consciousness and Denies dyspnea Respiratory: Reports no additional respiratory complaints and Denies dyspnea Gastrointestinal: Reports no additional gastrointestinal complaints, Denies abdominal pain, Denies melena, Denies hematochezia, Denies change in bowel habits and Denies change in stool character Genitourinary: Reports no additional male genitourinary complaints, Denies hematuria, Denies oliguria, Denies difficulty urinating, Denies dysuria, Denies urinary frequency, Denies urinary hesitancy, Denies urinary incontinence and Denies urinary urgency Musculoskeletal: Reports no additional musculoskeletal complaints, Denies nu mbness and Denies tingling Denies dizziness, Denies loss of vision, Denies numbness and Denies tingling Psychiatric: Reports no additional psychiatric complaints and Reports suicidal ideation Endocrine: Reports no additional endocrine complaints Hematologic/Lymphatic: Reports no additional hematologic/lymphatic complaints Allergic/Immunologic: Reports no additional allergic/immunologic complaints Mental Status Exam Mental Status Exam Narrative: A&O. Thin body habitus, casual attire, tattoos. Good eye contact, attentive. No Tics or Tremors. leg bouncing. anxious, cooperative, engaged, appearing mildly agitated. Non-pressured speech, spontaneous with regular rate and rhythm, normal volume and prosody. No prolonged speech latency or dysarthria. affect is hyper- intense, min-labile. denies SI. no HI/AVH expressed. + illusions. Thoughts are coherent, organized. No known cognitive or memory impairment. Insight/ Judgment fair and adequate. Judgement: Fair Diagnostics Vital Signs (24Hr): Vital Signs - 24 hr 01/11/22 21:58 01/12/22 09:00 Temperature 97.8 F 98.3 F Pulse Rate 76 62 Respiratory Rate 16 20 Blood Pressure 118/75 116/70 Pulse Oximetry 100 100 Oxygen Delivery Method Room Air Room Air BMI result Body Mass Index 22.5 Labs Results: 01/05/22 15:49 01/05/22 15:49 Medications Medications Current Medications Acetaminophen (Acetaminophen 325 Mg Tablet) 650 mg PO Q6H PRN PRN Reason: Headache/Pain Mild Scale (1-3) Al Hydroxide/Mg Hydroxide (Magnesium Hydrox/Alum Hydrox 30 Ml Oral.Susp) 30 ml PO Q6H PRN PRN Reason: Heartburn/Nausea Albuterol Sulfate (Albuterol Sulfate 90 Mcg 8 Gm Inhaler) 2 puff INHALE Q4H PRN PRN Reason: asthma Clonidine HCl (Clonidine Hcl 0.1 Mg Tablet) 0.1 mg PO Q4H PRN; Protocol PRN Reason: anxiety, sleep, hyperarousal Clonidine HCl (Clonidine Hcl 0.1 Mg Tablet) 0.1 mg PO TID [facility]; Protocol Last Admin: 01/12/22 09:11 Dose: 0.1 mg Fluoxetine HCl (Fluoxetine Hcl 20 Mg Capsule) 20 mg PO DAILY [facility] Last Admin: 01/12/22 09:11 Dose: 20 mg Hydroxyzine HCl (Hydroxyzine Hcl 25 Mg Tablet) 25 mg PO Q6H PRN PRN Reason: Anxiety Last Admin: 01/09/22 21:32 Dose: 25 mg Magnesium Hydroxide (Milk Of Magnesia 30 Ml Oral.Susp) 30 ml PO DAILY PRN PRN Reason: Constipation Melatonin (Melatonin 3 Mg Tablet) 6 mg PO BEDTIME PRN PRN Reason: Insomnia Last Admin: 01/11/22 22:19 Dose: 6 mg Nicotine (Nicotine 21 Mg Patch.Td24) 21 mg TRANSDERMA DAILY [facility] Last Admin: 01/12/22 09:12 Dose: 21 mg Nicotine Polacrilex (Nicotine Polacrilex 2 Mg Gum) 2 mg BUCCAL Q2H PRN PRN Reason: nicotine withdrawal Last Admin: 01/09/22 21:32 Dose: 2 mg Olanzapine (Olanzapine 5 Mg Tablet) 5 mg PO BEDTIME [facility] Last Admin: 01/11/22 22:09 Dose: 5 mg Olanzapine (Olanzapine 5 Mg Tablet) 5 mg PO DAILY [facility] Last Admin: 01/12/22 09:11 Dose: 5 mg Olanzapine (Olanzapine 5 Mg Tablet) 5 mg PO Q4H PRN PRN Reason: agitation Last Admin: 01/11/22 20:17 Dose: 5 mg Trazodone HCl (Trazodone Hcl 50 Mg Tablet) 50 mg PO BEDTIME PRN PRN Reason: Insomnia Last Admin: 01/10/22 21:52 Dose: 50 mg Trazodone HCl (Trazodone Hcl 100 Mg Tablet) 100 mg PO BEDTIME [facility] Last Admin: 01/11/22 22:09 Dose: 100 mg Triamcinolone Acetonide (Triamcinolone Acet 0.1 % Cream 15 Gm Tube) 1 appl TOPICAL BID [facility]; Protocol Last Admin: 01/11/22 22:10 Dose: 1 appl Allergies Allergies Allergy/AdvReac Type Severity Reaction Status Date / Time No Known Allergies Allergy Verified 04/18/21 18:04 Assessment & Plan Assessment & Plan (1) Post traumatic stress disorder (PTSD): Status: Acute Code(s): F43.10 - Post-traumatic stress disorder, unspecified Plan Gilberto is a 26 y.o. male who carries a dx of PTSD. He presented to [facility] [place] [place] ED due to SI with plan to cut his neck and AH seeing visions telling him to hurt himself. 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 Denies hx of IPLOC. Hx of OP therapy and brief med management. Hx of SA by overdosing on medication in 2018. Has significant trauma hx in ch ildhood and disrupted attachements. Plan: 01/07: Will start clonidine 0.1 mg Q4H PRN for hyperarousal, anxiety, and poor sleep. Will start prozac 20 mg QAM for sx of PTSD, anxiety, depression. 01/08: continue prozac 20 mg daily. start clonidine 0.1 mg TID for anxiety. start triamcinolone for atopic dermatitis. 01/09: continue current regimen. itch resolved with steroid cream. some improvement in anxiety. 3-day submitted, revoked. 01/10: start olanzapine 5 BID for quasi-psychotic Sx. otherwise continue current mgmt. 01/11: zyprexa 5 mg PRN added to regimen. pt reports improvement in persever ative thinking with zyprexa. illusions continue. 01/12; continue treatment plan I spent __15____ minutes with the patient and/or on the patient floor today, greater than?50% of which was spent counseling/coordinating care. Patient educated on: medication risk/benefits Informed Consent: further education needed Reason for contiued inpatient stay Substantial Risk for: harm to self, inability to function and rapid decompensation
[2022-01-12 13:59] VITALS: BP 133/61; PULSE 79; RESP 18; O2SAT 98
[2022-01-12 21:49] VITALS: BP 146/70; PULSE 72; RESP 18; TEMP 36.4; O2SAT 100
[2022-01-12] MEDS: traZODone HCL 100 MG TABLET PO (22:18)
[2022-01-12] MEDS: Melatonin 3 MG TABLET 6 MG PO (22:18)
[2022-01-12] MEDS: traZODone HCL 50 MG TABLET PO (22:18)
[2022-01-12] MEDS: Triamcinolone Acet 0.1 % Cream 15 GM TUBE 1 APPL TOPICAL (22:19)
[2022-01-13 09:00] VITALS: BP 118/61; PULSE 64; RESP 20; TEMP 36.6; O2SAT 100
[2022-01-13] MEDS: OLANZapine 5 MG TABLET PO ×2 (09:13→14:20)
[2022-01-13] MEDS: Nicotine 21 MG PATCH.TD24 TRANSDERMA (09:14)
[2022-01-13] MEDS: cloNIDine HCL 0.1 MG TABLET PO ×3 (09:14→20:53)
[2022-01-13] MEDS: FLUoxetine HCl 20 MG CAPSULE PO (09:14)
--- NOTE | 2022-01-13 12:09 | P.PNPSI_ITS ---
Subjective Subjective Date of Service: 01/13/22 Reason For Visit: SI, depression Interim History: pt irritable, anxious; reports he is still very depressed; has SI but no plan or intent, reports seeing shadows. reports he slept well last night. mood is still variable and can be irritable quickly. 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 LAYER: No c/o dizziness, headache GI: No c/o Nausea, Vomiting, diarrhea, constipation or heartburn Constitutional: Reports no additional constitutional complaints, Denies chills, Denies fever(s) and Denies night sweats Eyes: Reports no additional eye complaints, Denies blurry vision, Denies change in vision, Denies diplopia, Denies eye discharge, Denies loss of vision and Denies eye pain Denies dizziness Cardiovascular: Reports no additional cardiovascular complaints, Denies chest pain, Denies lightheadedness, Denies Loss of Consciousness and Denies dyspnea Respiratory: Reports no additional respiratory complaints and Denies dyspnea Gastrointestinal: Reports no additional gastrointestinal complaints, Denies abdominal pain, Denies melena, Denies hematochezia, Denies change in bowel habits and Denies change in stool character Genitourinary: Reports no additional male genitourinary complaints, Denies hematuria, Denies oliguria, Denies difficulty urinating, Denies dysuria, Denies urinary frequency, Denies urinary hesitancy, Denies urinary incontinence and Denies urinary urgency Musculoskeletal: Reports no additional musculoskeletal complaints, Denies numbness and Denies tingling Denies dizziness, Denies loss of vision, Denies numbness and Denies tingling Psychiatric: Reports no additional psychiatric complaints and Reports suicidal ideation Endocrine: Reports no additional endocrine complaints Hematologic/Lymphatic: Reports no additional hematologic/lymphatic complaints Allergic/Immunologic: Reports no additional allergic/immunologic complaints Mental Status Exam Mental Status Exam Narrative: A&O. appears thin, in casual attire, tattoos. Good eye contact, attentive. No Tics or Tremors. leg bouncing. anxious, cooperative, engaged, appearing mildly agitated. Non-pressured speech, spontaneous with regular rate and rhythm, normal volume and prosody. No prolonged speech latency or dysarthria. affect is hyper- intense, min-labile. denies SI. no HI/AVH expressed. + illusions. Thoughts are coherent, organized. No known cognitive or memory impairment. Insight/ Judgment fair and adequate. Diagnostics Vital Signs (24Hr): Vital Signs - 24 hr 01/12/22 13:59 01/12/22 21:49 01/13/22 09:00 Temperature 97.6 F 97.9 F Pulse Rate 79 72 64 Respiratory Rate 18 18 20 Blood Pressure 133/61 146/70 H 118/61 Pulse Oximetry 98 100 100 Oxygen Delivery Method Room Air Room Air Room Air BMI result Body Mass Index 22.5 Labs Results: 01/05/22 15:49 01/05/22 15:49 Medications Medications Current Medications Acetaminophen (Acetaminophen 325 Mg Tablet) 650 mg PO Q6H PRN PRN Reason: Headache/Pain Mild Scale (1-3) Al Hydroxide/Mg Hydroxide (Magnesium Hydrox/Alum Hydrox 30 Ml Oral.Susp) 30 ml PO Q6H PRN PRN Reason: Heartburn/Nausea Albuterol Sulfate (Albuterol Sulfate 90 Mcg 8 Gm Inhaler) 2 puff INHALE Q4H PRN PRN Reason: asthma Clonidine HCl (Clonidine Hcl 0.1 Mg Tablet) 0.1 mg PO Q4H PRN; Protocol PRN Reason: anxiety, sleep, hyperarousal Clonidine HCl (Clonidine Hcl 0.1 Mg Tablet) 0.1 mg PO TID [facility]; Protocol Last Admin: 01/13/22 09:14 Dose: 0.1 mg Fluoxetine HCl (Fluoxetine Hcl 20 Mg Capsule) 20 mg PO DAILY [facility] Last Admin: 01/13/22 09:14 Dose: 20 mg Hydroxyzine HCl (Hydroxyzine Hcl 25 Mg Tablet) 25 mg PO Q6H PRN PRN Reason: Anxiety Last Admin: 01/09/22 21:32 Dose: 25 mg Magnesium Hydroxide (Milk Of Magnesia 30 Ml Oral.Susp) 30 ml PO DAILY PRN PRN Reason: Constipation Melatonin (Melatonin 3 Mg Tablet) 6 mg PO BEDTIME PRN PRN Reason: Insomnia Last Admin: 01/12/22 22:18 Dose: 6 mg Nicotine (Nicotine 21 Mg Patch.Td24) 21 mg TRANSDERMA DAILY [facility] Last Admin: 01/13/22 09:14 Dose: 21 mg Nicotine Polacrilex (Nicotine Polacrilex 2 Mg Gum) 2 mg BUCCAL Q2H PRN PRN Reason: nicotine withdrawal Last Admin: 01/09/22 21:32 Dose: 2 mg Olanzapine (Olanzapine 5 Mg Tablet) 5 mg PO BEDTIME [facility] Last Admin: 01/12/22 22:18 Dose: 5 mg Olanzapine (Olanzapine 5 Mg Tablet) 5 mg PO DAILY [facility] Last Admin: 01/13/22 09:13 Dose: 5 mg Olanzapine (Olanzapine 5 Mg Tablet) 5 mg PO Q4H PRN PRN Reason: agitation Last Admin: 01/12/22 14:01 Dose: 5 mg Trazodone HCl (Trazodone Hcl 50 Mg Tablet) 50 mg PO BEDTIME PRN PRN Reason: Insomnia Last Admin: 01/12/22 22:18 Dose: 50 mg Trazodone HCl (Trazodone Hcl 100 Mg Tablet) 100 mg PO BEDTIME [facility] Last Admin: 01/12/22 22:18 Dose: 100 mg Triamcinolone Acetonide (Triamcinolone Acet 0.1 % Cream 15 Gm Tube) 1 appl TO PICAL BID [facility]; Protocol Last Admin: 01/12/22 22:19 Dose: 1 appl Allergies Allergies Allergy/AdvReac Type Severity Reaction Status Date / Time No Known Allergies Allergy Verified 04/18/21 18:04 Assessment & Plan Assessment & Plan (1) Post traumatic stress disorder (PTSD): Status: Acute Code(s): F43.10 - Post-traumatic stress disorder, unspecified Plan Gilberto is a 26 y.o. male who carries a dx of PTSD. He presented to [facility] ED due to SI with plan to cut his neck and AH seeing visions telling him to hurt himself. 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 Denies hx of IPLOC. Hx of OP therapy and brief med management. Hx of SA by overdosing on medication in 2018. Has significant trauma hx in childhood and disrupted attachements. Plan: 01/07: Will start clonidine 0.1 mg Q4H PRN for hyperarousal, anxiety, and poor sleep. Will start prozac 20 mg QAM for sx of PTSD, anxiety, depression. 01/08: continue prozac 20 mg daily. start clonidine 0.1 mg TID for anxiety. start triamcinolone for atopic dermatitis. 01/09: continue current regimen. itch resolved with steroid cream. some i mprovement in anxiety. 3-day submitted, revoked. 01/10: start olanzapine 5 BID for quasi-psychotic Sx. otherwise continue current mgmt. 01/11: zyprexa 5 mg PRN added to regimen. pt reports improvement in perseverative thinking with zyprexa. illusions continue. 01/12; continue treatment plan 01/13 Increase zyprexa to 5 mg in am and 7.5mg at HS I spent ____15__ minutes with the patient and/or on the patient floor today, greater than?50% of which was spent counseling/coordinating care. Reason for contiued inpatient stay Substantial Risk for: harm to self, inability to function and rapid decompens ation
[2022-01-13 14:15] VITALS: BP 129/66; PULSE 78; RESP 20; O2SAT 100
[2022-01-13 20:45] VITALS: BP 135/62; PULSE 64; RESP 16; TEMP 36.9; O2SAT 100
[2022-01-13] MEDS: OLANZapine 7.5 MG TABLET PO (20:53)
[2022-01-13] MEDS: traZODone HCL 100 MG TABLET PO (20:53)
[2022-01-13] MEDS: Melatonin 3 MG TABLET 6 MG PO (20:53)
[2022-01-13] MEDS: traZODone HCL 50 MG TABLET PO (20:53)
[2022-01-14] MEDS: cloNIDine HCL 0.1 MG TABLET PO ×2 (14:35→21:27)
--- NOTE | 2022-01-14 14:47 | P.PNPSI_ITS ---
Subjective Subjective Date of Service: 01/14/22 Reason For Visit: SI, depression Interim History: pt irritable, not forthcoming, poor eye contact. states he is upset at what he believes is the plan to discharge him tomorrow. he states he has told us he does not feel ready to leave and we aren't hearing him and that what happens after he leaves is going to be on you. it's all written down. MD informs pt he is responsible for his own behavior and that pt appears safe and able to meet his own basic needs. long silences, no spontaneous speech from pt. eventually he asks, is that all you've got to say today? indicates yes, pt gets up and leaves. per staff, c/o dep/SI. denies HI. zyprexa helpful. worried about work and being homeless. anx 06/29. endorses SIBI, denies plan. still seeing shadows. had nightmares last night. Mental Status Exam Mental Status Exam Narrative: A&O. Thin body habitus, casual attire, tattoos. poor eye contact, attentive. No Tics or Tremors. PMA of leg bouncing. anxious, not cooperative, disengaged, appearing mildly agitated. Non-pressured speech, non-spontaneous with regular rate and rhythm, normal volume and prosody. prolonged speech latency. no dysarthria. affect is hyper-intense, non-labile. no SI/HI/AVH expressed. + il lusions. Thoughts are coherent, organized. No known cognitive or memory impairment. Insight/ Judgment fair and adequate. Diagnostics Vital Signs (24Hr): Vital Signs - 24 hr 01/13/22 20:45 Temperature 98.5 F Pulse Rate 64 Respiratory Rate 16 Blood Pressure 135/62 Pulse Oximetry 100 Oxygen Delivery Method Room Air BMI result Body Mass Index 22.5 Labs Results: 01/05/22 15:49 01/05/22 15:49 Medications Medications Current Medications Acetaminophen (Acetaminophen 325 Mg Tablet) 650 mg PO Q6H PRN PRN Reason: Headache/Pain Mild Scale (1-3) Al Hydroxide/Mg Hydroxide (Magnesium Hydrox/Alum Hydrox 30 Ml Oral.Susp) 30 ml PO Q6H PRN PRN Reason: Heartburn/Nausea Albuterol Sulfate (Albuterol Sulfate 90 Mcg 8 Gm Inhaler) 2 puff INHALE Q4H PRN PRN Reason: asthma Clonidine HCl (Clonidine Hcl 0.1 Mg Tablet) 0.1 mg PO Q4H PRN; Protocol PRN Reason: anxiety, sleep, hyperarousal Clonidine HCl (Clonidine Hcl 0.1 Mg Tablet) 0.1 mg PO TID [facility]; Protocol Last Admin: 01/14/22 14:35 Dose: 0.1 mg Fluoxetine HCl (Fluoxetine Hcl 20 Mg Capsule) 20 mg PO DAILY [facility] Last Admin: 01/14/22 10:15 Dose: Not Given Hydroxyzine HCl (Hydroxyzine Hcl 25 Mg Tablet) 25 mg PO Q6H PRN PRN Reason: Anxiety Last Admin: 01/09/22 21:32 Dose: 25 mg Magnesium Hydroxide (Milk Of Magnesia 30 Ml Oral.Susp) 30 ml PO DAILY PRN PRN Reason: Constipation Melatonin (Melatonin 3 Mg Tablet) 6 mg PO BEDTIME PRN PRN Reason: Insomnia Last Admin: 01/13/22 20:53 Dose: 6 mg Nicotine (Nicotine 21 Mg Patch.Td24) 21 mg TRANSDERMA DAILY [facility] Last Admin: 01/14/22 10:15 Dose: Not Given Nicotine Polacrilex (Nicotine Polacrilex 2 Mg Gum) 2 mg BUCCAL Q2H PRN PRN Reason: nicotine withdrawal Last Admin: 01/09/22 21:32 Dose: 2 mg Olanzapine (Olanzapine 5 Mg Tablet) 5 mg PO DAILY [facility] Last Admin: 01/14/22 10:16 Dose: Not Given Olanzapine (Olanzapine 5 Mg Tablet) 5 mg PO Q4H PRN PRN Reason: agitation Last Admin: 01/13/22 14:20 Dose: 5 mg Olanzapine (Olanzapine 7.5 Mg Tablet) 7.5 mg PO BEDTIME [facility] Last Admin: 01/13/22 20:53 Dose: 7.5 mg Trazodone HCl (Trazodone Hcl 50 Mg Tablet) 50 mg PO BEDTIME PRN PRN Reason: Insomnia Last Admin: 01/13/22 20:53 Dose: 50 mg Trazodone HCl (Trazodone Hcl 100 Mg Tablet) 100 mg PO BEDTIME [facility] Last Admin: 01/13/22 20:53 Dose: 100 mg Triamcinolone Acetonide (Triamcinolone Acet 0.1 % Cream 15 Gm Tube) 1 appl TOPICAL BID [facility]; Protocol Last Admin: 01/14/22 10:16 Dose: Not Given Allergies Allergies Allergy/AdvReac Type Severity Reaction Status Date / Time No Known Allergies Allergy Verified 04/18/21 18:04 Assessment & Plan Assessment & Plan (1) Post traumatic stress disorder (PTSD): Status: Acute Code(s): F43.10 - Post-traumatic stress disorder, unspecified Plan Gilberto is a 26 y.o. male who carries a dx of PTSD. He presented to [facility] ED due to SI with plan to cut his neck and AH seeing visions telling him to hurt himself. 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 Denies hx of IPLOC. Hx of OP therapy and brief med management. Hx of SA by overdosing on medication in 2018. Has significant trauma hx in childhood and disrupted attachements. Plan: 01/07: Will start clonidine 0.1 mg Q4H PRN for hyperarousal, anxiety, and poor sleep. Will start prozac 20 mg QAM for sx of PTSD, anxiety, depression. 01/08: continue prozac 20 mg daily. start clonidine 0.1 mg TID for anxiety. start triamcinolone for atopic dermatitis. 01/09: continue current regimen. itch resolved with steroid cream. some improvement in anxiety. 3-day submitted, revoked. 01/10: start olanzapine 5 BID for quasi-psychotic Sx. otherwise continue current mgmt. 01/11: zyprexa 5 mg PRN added to regimen. pt reports improvement in perseverative thinking with zyprexa. illusions continue. 01/12: continue treatment plan 01/13: Increase zyprexa to 5 mg in am and 7.5mg at HS 01/14: continue current mgmt. I spent __25____ minutes with the patient and/or on the patient floor today, greater than?50% of which was spent counseling/coordinating care. Reason for contiued inpatient stay Substantial Risk for: rapid decompensation
[2022-01-14 20:15] VITALS: BP 126/66; PULSE 69; RESP 16; TEMP 36.6; O2SAT 99
[2022-01-14] MEDS: OLANZapine 7.5 MG TABLET PO (21:27)
[2022-01-14] MEDS: Melatonin 3 MG TABLET 6 MG PO (21:27)
[2022-01-14] MEDS: traZODone HCL 50 MG TABLET PO (21:28)
[2022-01-14] MEDS: traZODone HCL 100 MG TABLET PO (21:28)
[2022-01-15 08:40] VITALS: BP 135/81; PULSE 100; RESP 18; TEMP 36.4; O2SAT 98
[2022-01-15] MEDS: cloNIDine HCL 0.1 MG TABLET PO ×3 (09:35→21:26)
[2022-01-15] MEDS: FLUoxetine HCl 20 MG CAPSULE PO (09:36)
[2022-01-15] MEDS: OLANZapine 5 MG TABLET PO (09:36)
[2022-01-15] MEDS: Nicotine 21 MG PATCH.TD24 TRANSDERMA (09:36)
--- NOTE | 2022-01-15 13:31 | P.PNPSI_ITS ---
Subjective Subjective Date of Service: 01/15/22 Reason For Visit: SI, depression Interim History: calm, cooperative, relatively pleasant. much better attitude toward treaters once realizing he will be discharged on medication and with aftercare appointments in place. expresses some anxiety about leaving but at the same time i'm happy because i'm on proper medications. reports he is sleeping and eating OK, planning for discharge tomorrow. per staff, feeling better now he knows we are referring him for treatment. no issues. Mental Status Exam Mental Status Exam Narrative: A&O. Thin body habitus, casual attire, tattoos. Good eye contact, attentive. No Tics or Tremors. no leg bouncing. anxious, cooperative, engaged. Non-pressured speech, spontaneous with regular rate and rhythm, normal volume and prosody. No prolonged speech latency or dysarthria. affect is normo-intense, non-labile. no SI/HI/AVH expressed. illusions improved. Thoughts are coherent, organized. No known cognitive or memory impairment. Insight/ Judgment fair and adequate. Judgement: Fair Diagnostics Vital Signs (24Hr): Vital Signs - 24 hr 01/14/22 20:15 01/15/22 08:40 Temperature 97.9 F 97.6 F Pulse Rate 69 100 Respiratory Rate 16 18 Blood Pressure 126/66 135/81 Pulse Oximetry 99 98 Oxygen Delivery Method Room Air Room Air BMI result Body Mass Index 22.5 Labs Results: 01/05/22 15:49 01/05/22 15:49 Medications Medications Current Medications Acetaminophen (Acetaminophen 325 Mg Tablet) 650 mg PO Q6H PRN PRN Reason: Headache/Pain Mild Scale (1-3) Al Hydroxide/Mg Hydroxide (Magnesium Hydrox/Alum Hydrox 30 Ml Oral.Susp) 30 ml PO Q6H PRN PRN Reason: Heartburn/Nausea Albuterol Sulfate (Albuterol Sulfate 90 Mcg 8 Gm Inhaler) 2 puff INHALE Q4H PRN PRN Reason: asthma Clonidine HCl (Clonidine Hcl 0.1 Mg Tablet) 0.1 mg PO Q4H PRN; Protocol PRN Reason: anxiety, sleep, hyperarousal Clonidine HCl (Clonidine Hcl 0.1 Mg Tablet) 0.1 mg PO TID [facility]; Protocol Last Admin: 01/15/22 09:35 Dose: 0.1 mg Fluoxetine HCl (Fluoxetine Hcl 20 Mg Capsule) 20 mg PO DAILY [facility] Last Admin: 01/15/22 09:36 Dose: 20 mg Hydroxyzine HCl (Hydroxyzine Hcl 25 Mg Tablet) 25 mg PO Q6H PRN PRN Reason: Anxiety Last Admin: 01/09/22 21:32 Dose: 25 mg Magnesium Hydroxide (Milk Of Magnesia 30 Ml Oral.Susp) 30 ml PO DAILY PRN PRN Reason: Constipation Melatonin (Melatonin 3 Mg Tablet) 6 mg PO BEDTIME PRN PRN Reason: Insomnia Last Admin: 01/14/22 21:27 Dose: 6 mg Nicotine (Nicotine 21 Mg Patch.Td24) 21 mg TRANSDERMA DAILY [facility] Last Admin: 01/15/22 09:36 Dose: 21 mg Nicotine Polacrilex (Nicotine Polacrilex 2 Mg Gum) 2 mg BUCCAL Q2H PRN PRN Reason: nicotine withdrawal Last Admin: 01/09/22 21:32 Dose: 2 mg Olanzapine (Olanzapine 5 Mg Tablet) 5 mg PO DAILY [facility] Last Admin: 01/15/22 09:36 Dose: 5 mg Olanzapine (Olanzapine 5 Mg Tablet) 5 mg PO Q4H PRN PRN Reason: agitation Last Admin: 01/13/22 14:20 Dose: 5 mg Olanzapine (Olanzapine 7.5 Mg Tablet) 7.5 mg PO BEDTIME [facility] Last Admin: 01/14/22 21:27 Dose: 7.5 mg Trazodone HCl (Trazodone Hcl 50 Mg Tablet) 50 mg PO BEDTIME PRN PRN Reason: Insomnia Last Admin: 01/14/22 21:28 Dose: 50 mg Trazodone HCl (Trazodone Hcl 100 Mg Tablet) 100 mg PO BEDTIME [facility] Last Admin: 01/14/22 21:28 Dose: 100 mg Triamcinolone Acetonide (Triamcinolone Acet 0.1 % Cream 15 Gm Tube) 1 appl TOPICAL BID [facility]; Protocol Last Admin: 01/15/22 09:38 Dose: Not Given Allergies Allergies Allergy/AdvReac Type Severity Reaction Status Date / Time No Known Allergies Allergy Verified 04/18/21 18:04 Assessment & Plan Assessment & Plan (1) Post traumatic stress disorder (PTSD): Status: Acute Code(s): F43.10 - Post-traumatic stress disorder, unspecified Plan Gilberto is a 26 y.o. male who carries a dx of PTSD. He presented to [facility] ED due to SI with plan to cut his neck and AH seeing visions telling him to hurt himself. 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 Denies hx of IPLOC. Hx of OP therapy and brief med management. Hx of SA by overdosing on medication in 2018. Has significant trauma hx in childhood and disrupted attachements. Plan: 01/07: Will start clonidine 0.1 mg Q4H PRN for hyperarousal, anxiety, and poor sleep. Will start prozac 20 mg QAM for sx of PTSD, anxiety, depression. 01/08: continue prozac 20 mg daily. start clonidine 0.1 mg TID for anxiety. start triamcinolone for atopic dermatitis. 01/09: continue current regimen. itch resolved with steroid cream. some improvement in anxiety. 3-day submitted, revoked. 01/10: start olanzapine 5 BID for quasi-psychotic Sx. otherwise continue current mgmt. 01/11: zyprexa 5 mg PRN added to regimen. pt reports improvement in perseverative thinking with zyprexa. illusions continue. 01/12: continue treatment plan 01/13: Increase zyprexa to 5 mg in am and 7.5mg at HS 01/14: continue current mgmt. 01/15: continue current mgmt. arrange aftercare, discharge tomorrow. I spent __25____ minutes with the patient and/or on the patient floor today, greater than?50% of which was spent counseling/coordinating care. Reason for contiued inpatient stay Substantial Risk for: rapid decompensation
[2022-01-15 21:21] VITALS: BP 137/71; PULSE 81; TEMP 36.9; O2SAT 99
[2022-01-15] MEDS: Melatonin 3 MG TABLET 6 MG PO (21:25)
[2022-01-15] MEDS: OLANZapine 7.5 MG TABLET PO (21:25)
[2022-01-15] MEDS: traZODone HCL 100 MG TABLET PO (21:25)
[2022-01-15] MEDS: traZODone HCL 50 MG TABLET PO (21:27)
[2022-01-16 08:00] VITALS: BP 120/73; PULSE 68; RESP 18; TEMP 36.6; O2SAT 100
[2022-01-16] MEDS: OLANZapine 5 MG TABLET PO (08:34)
[2022-01-16] MEDS: FLUoxetine HCl 20 MG CAPSULE PO (08:34)
[2022-01-16] MEDS: cloNIDine HCL 0.1 MG TABLET PO (08:35)
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
== END 2022-01-16 11:52 | disposition home or self-care (01) | DRG 755 ==
LOC: HO.ED 17:20 → HO.PADLT16 01-06 17:46
PROVIDERS: Physician Assistant Medical; Registered Nurse; Admitting Provider Psychiatry & Neurology Psychiatry; Emergency Provider Student in an Organized Health Care Education/Training Program; PCP Internal Medicine; Visit Provider Psychiatry & Neurology Psychiatry
DX: F43.10 Post-traumatic stress disorder, unspecified (principal); R45.851 Suicidal ideations; F17.210 Nicotine dependence, cigarettes, uncomplicated; Z20.822 Contact with and (suspected) exposure to COVID-19; Z59.02 Unsheltered homelessness; Z71.6 Tobacco abuse counseling; Z79.899 Other long term (current) drug therapy
CPT/HCPCS: 36415; 73130; 80053; 80307; 82077; 82607; 82746; 83735; 84439; 84443; 85025; 87635; 99285